=== PATIENT | female | born 1975 | race Caucasian/White ===

== ENCOUNTER 2023-09-27 09:00 | Inpatient (IN) | payer MEDICAID ==
[~2023-09-27] VITALS: Ht 167.6 cm; Wt 99.4 kg
[2023-09-27] VITALS (18 sets, daily range): BP systolic 98–131; BP diastolic 54–94; PULSE 82–99; RESP 16–27; TEMP 98.2; O2SAT 98–100
[2023-09-27 09:32] LABS: ABG BASE EXCESS -11.2 mmol/L (-2.0-2.0); ABG HCO3 16.9 mmol/L (22.0-26.0); ABG OXYGEN SATURATION 93.6 % (94-97); ABG PCO2 (T) 49.7 mmHg (32.0-45.0); ABG PH (T) 7.153 (7.350-7.450); ABG PO2 (T) 80.7 mmHg (75.0-100.0); ALLEN'S TEST POSITIVE; FCOHb 0.3 % (0.0-3.9); FHHb 6.4 % (0.0-5.0); FLOW 2 L/min; FMetHb 0.3 % (0.0-1.5); MODE NASAL CANNULA; PATIENT TEMPERATURE 37.4; TOTAL HEMOGLOBIN 9.1 G/dl (12.0-16.0)
[2023-09-27 10:04] LABS: BASOPHILS % (AUTO) 0.9 % (0-1); EOSINOPHILS # (AUTO) 0.1 X10'3 (0-0.9); EOSINOPHILS % (AUTO) 1.1 % (0-6); HEMATOCRIT 25.4 % (35.0-45.0); HEMOGLOBIN 8.2 g/dl (12.0-16.0); LYMPHOCYTES # (AUTO) 0.7 X10'3 (1.1-4.8); LYMPHOCYTES % (AUTO) 13.4 % (21-51); MEAN CORPUSCULAR HEMOGLOBIN 33.6 PG (27.0-31.0); MEAN CORPUSCULAR HGB CONC 32.2 g/dL (33.0-36.5); MEAN CORPUSCULAR VOLUME 104.3 FL (78-98); MEAN PLATELET VOLUME 6.5 FL (7.4-10.4); MONOCYTES # (AUTO) 0.4 X10'3 (0-0.9); MONOCYTES % (AUTO) 8.5 % (2-12); NEUTROPHILS # (AUTO) 3.9 X10'3 (1.8-7.7); NEUTROPHILS % (AUTO) 76.1 % (42-75); PLATELET COUNT 249 X10'3 (140-440); RED BLOOD COUNT 2.43 X10'6 (4.20-5.60); RED CELL DISTRIBUTION WIDTH 18.9 % (11.5-14.5); WHITE BLOOD COUNT 5.1 X10'3 (4.5-11.0)
[2023-09-27 10:18] LABS: ALBUMIN 2.5 G/DL (3.4-5.0); ANION GAP 17 (8-16); BLOOD UREA NITROGEN 53 MG/DL (7-18); BUN/CREATININE RATIO 5.7 (10.0-20.0); CALCIUM 8.7 MG/DL (8.5-10.1); CHLORIDE 102 MMOL/L (99-107); CREATININE 9.37 MG/DL (0.40-0.90); GLUCOSE 114 MG/DL (70-104); POTASSIUM 5.7 MMOL/L (3.5-5.1); SODIUM 137 MMOL/L (135-145); TOTAL CARBON DIOXIDE 18.3 MMOL/L (24-32); eCRCL 7 ML/MIN; eGFR 5 ML/MIN
[2023-09-27 10:22] LABS: BILIRUBIN,URINE NEGATIVE (Neg); CLARITY,URINE SLIGHTLY CLOUDY (Clear); COLOR,URINE YELLOW (Yellow); GLUCOSE, URINE NEGATIVE (Neg); KETONES,URINE NEGATIVE (Neg); LEUKOCYTE ESTERASE ,URINE TRACE (Neg); NITRITES, URINE NEGATIVE (Neg); OCCULT BLOOD,URINE LARGE (Neg); PH,URINE 6.5 (4.8-8.0); PROTEIN,URINE NEGATIVE (Neg); UROBILINOGEN,URINE 0.2 E.U/dL (0.2-1.0)
[2023-09-27 10:27] LABS: ANISOCYTOSIS 2+; PLATELET ESTIMATE NORMAL
[2023-09-27 10:41] LABS: UA COLLECTION TYPE FOLEY CATH
[2023-09-27 10:45] LABS: SQUAMOUS EPITHELIAL CELL,UR MANY /LPF (FEW)
[2023-09-27 10:46] LABS: WBC,URINE 20-30 /HPF (0-4)
[2023-09-27 10:47] LABS: BACTERIA,URINE FEW /HPF (Neg); YEAST FEW /HPF (NEGATIVE)
[2023-09-27] MEDS: CefTRIAXone 2gm/D5W 50ml BAG 50 ML IV ONE (10:58)
[2023-09-27] MEDS: acetaminophen 325mg tablet PO ONE (10:58)
[2023-09-27] MEDS: naloxone 2mg/2ml inj IV STA (11:02)
[2023-09-27] MEDS: acetaminophen 325mg rectal suppository RC ONE (11:37)
[2023-09-27] MEDS: WATER FOR INJECTION,STERILE 71 ML in dextrose 70%-water 179 ML IV SCH (11:50)
[2023-09-27] MEDS ORDERED: calcium gluconate inj. 3 GM in normal saline 100ml IV soln 100 ML IV ONE (11:50)
[2023-09-27] MEDS: vancomycin/NS 1 GM ADD-VANTAGE 250 ML IV ONE (11:58)
[2023-09-27 12:01] LABS: URINE AMPHETAMINE SCREEN NEGATIVE (Neg); URINE BARBITUATE SCREEN NEGATIVE (Neg); URINE BENZODIAZEPINES SCREEN POSITIVE (Neg); URINE CANNABINOID SCREEN NEGATIVE (Neg); URINE COCAINE SCREEN NEGATIVE (Neg); URINE METHADONE SCREEN NEGATIVE (Neg); URINE OPIATE SCREEN NEGATIVE (Neg); URINE PHENCYCLIDINE SCREEN NEGATIVE (Neg)
[2023-09-27] MEDS: normal saline 1000ml 1,000 ML IV SCH (12:05)
[2023-09-27] MEDS ORDERED: CALCIUM GLUC 1gm/50ml NACL,iso 50 ML IV SCH (12:08)
[2023-09-27] MEDS: dextrose 50%-water 50ml dispensing syringe IV ONE (12:17)
[2023-09-27] MEDS: sodium bicarbonate (8.4%) 1 mEq/ml syringe IV ONE (12:17)
[2023-09-27] MEDS: insulin regular, human 10 units/0.1 ml syringe IV ONE (12:20)
[2023-09-27] MEDS: CALCIUM GLUC 1gm/50ml NACL,iso 50 ML IV ONE (12:51)
[2023-09-27 12:52] LABS: ETHANOL < 10 MG/DL (<10)
[2023-09-27 13:48] LABS: LIPASE 26 U/L (16-77)
[2023-09-27] MEDS ORDERED: magnesium 2GM in 50ml NS 50 ML IV PRN ×2 (16:15→19:55)
[2023-09-27] MEDS ORDERED: magnesium Cl slow-release 64mg tablet PO PRN ×2 (16:15→19:55)
[2023-09-27] MEDS ORDERED: ondansetron/PF 4mg/2ml inj IV PRN ×2 (16:15→19:55)
[2023-09-27] MEDS ORDERED: acetaminophen 325mg tablet PO PRN ×2 (16:15→19:55)
[2023-09-27] MEDS ORDERED: mag hydrox/Alum hydrox/simeth 30ml oral suspension PO PRN ×2 (16:15→19:55)
[2023-09-27] MEDS ORDERED: magnesium hydroxide 30ml (MOM) UD suspension PO PRN ×2 (16:15→19:55)
[2023-09-27] MEDS ORDERED: magnesium 4gm in 100ml NS 100 ML IV PRN ×2 (16:15→19:55)
[2023-09-27] MEDS ORDERED: potassium Cl 40MEQ/1/2NS 520ml 520 ML IV PRN (16:15)
[2023-09-27] MEDS ORDERED: potassium Cl 20 mEq SR tablet PO PRN ×2 (16:15)
[2023-09-27 17:40] LABS: ABG HCO3 18.9 mmol/L (22.0-26.0); ABG OXYGEN SATURATION 95.3 % (94-97); ABG PCO2 (T) 64.4 mmHg (32.0-45.0); ABG PH (T) 7.082 (7.350-7.450); ABG PO2 (T) 92.1 mmHg (75.0-100.0); ALLEN'S TEST POSITIVE; FCOHb 0.5 % (0.0-3.9); FHHb 4.7 % (0.0-5.0); FMetHb 0.4 % (0.0-1.5); FO2Hb 94.4 % (94-97); MODE MASK - BIPAP; PATIENT TEMPERATURE 36.4; RESPIRATORY RATE 16 b/min; TOTAL HEMOGLOBIN 8.9 G/dl (12.0-16.0)
[2023-09-27] MEDS: rocuronium 10mg/ml inj IV ONE (18:02)
[2023-09-27] MEDS: etomidate 2mg/ml inj. IV ONE (18:02)
[2023-09-27] MEDS: fentaNYL/PF 50MCG/1 ML 2ML syringe IV ONE ×3 (18:08→19:50)
[2023-09-27] MEDS: fentaNYL/PF 50MCG/1 ML 2ML syringe ONE ×2 (18:09→18:10)
[2023-09-27] MEDS ORDERED: propofol 1000mg/100ml bottle 100 ML IV PRN ×2 (18:10)
[2023-09-27] MEDS: normal saline 1000ML IV soln IVB ONE (18:13)
[2023-09-27] MEDS: MIDAZolam 5mg/ml 2ml vial IV ONE (18:24)
[2023-09-27] MEDS: FENTANYL-0.9 % NACL/PF 100 ML IV PRN (19:03)
[2023-09-27] MEDS: midazolam 1 mg/ML 2ml injection IV ONE (19:45)
[2023-09-27 19:50] LABS: ABG BASE EXCESS -10.5 mmol/L (-2.0-2.0); ABG OXYGEN SATURATION 99.8 % (94-97); ABG PCO2 (T) 52.2 mmHg (32.0-45.0); ABG PH (T) 7.151 (7.350-7.450); ABG PO2 (T) 322.9 mmHg (75.0-100.0); ALLEN'S TEST POSITIVE; FCOHb 0.4 % (0.0-3.9); FHHb 0.2 % (0.0-5.0); FMetHb 0.4 % (0.0-1.5); MODE VENT - AC; PATIENT TEMPERATURE 36.4; RESPIRATORY RATE 22 b/min; TIDAL VOLUME 350 mL; TOTAL HEMOGLOBIN 8.4 G/dl (12.0-16.0)
[2023-09-27] MEDS ORDERED: FENTANYL-0.9 % NACL/PF 100 ML IV PRN (19:55)
[2023-09-27] MEDS ORDERED: docusate sod 100mg capsule PO SCH (20:00)
[2023-09-27] MEDS: docusate sod 100mg capsule PO SCH (20:00)
[2023-09-27] MEDS ORDERED: K and/or MAG REPLACEMENT MC SCH (20:00)
[2023-09-27] MEDS: K and/or MAG REPLACEMENT MC SCH (20:00)
[2023-09-27] MEDS: albumin (human) 25% 100ml IV 100 ML IV PRN (21:59)
[2023-09-27] MEDS: dexamethasone 4mg/ml inj IV SCH (22:27)
[2023-09-27] MEDS: heparin, porcine 5000 units/ml vial SQ SCH (22:27)
[2023-09-27] MEDS: midazolam 100mg in NS 100ml 100 ML IV PRN (22:28)
[2023-09-27] MEDS: heparin 1,000 units/ml 10ml inj IV ONE (23:10)
[2023-09-27] MEDS: heparin 1,000unit/ml 10ml vial 10 ML IV ONE (23:11)
[2023-09-27] MEDS: LIDOcaine 1% (10mg/ml) 2ml vial SQ ONE (23:14)
[2023-09-27] MEDS: EPOETIN ALFA-EPBX 20,000 UNIT/ML 1 ML MDV IV ONE (23:24)
[2023-09-28] VITALS (41 sets, daily range): BP systolic 118–152; BP diastolic 54–86; PULSE 62–89; RESP 16–33; O2SAT 92–100
[2023-09-28 03:20] LABS: BASOPHILS % (AUTO) 0.8 % (0-1); EOSINOPHILS % (AUTO) 0.7 % (0-6); HEMATOCRIT 23.1 % (35.0-45.0); HEMOGLOBIN 7.7 g/dl (12.0-16.0); LYMPHOCYTES # (AUTO) 0.3 X10'3 (1.1-4.8); LYMPHOCYTES % (AUTO) 6.6 % (21-51); MEAN CORPUSCULAR HEMOGLOBIN 32.9 PG (27.0-31.0); MEAN CORPUSCULAR HGB CONC 33.4 g/dL (33.0-36.5); MEAN CORPUSCULAR VOLUME 98.7 FL (78-98); MEAN PLATELET VOLUME 7.2 FL (7.4-10.4); MONOCYTES # (AUTO) 0.2 X10'3 (0-0.9); MONOCYTES % (AUTO) 4.5 % (2-12); NEUTROPHILS # (AUTO) 3.7 X10'3 (1.8-7.7); NEUTROPHILS % (AUTO) 87.4 % (42-75); PLATELET COUNT 270 X10'3 (140-440); RED BLOOD COUNT 2.35 X10'6 (4.20-5.60); WHITE BLOOD COUNT 4.3 X10'3 (4.5-11.0)
[2023-09-28 03:36] LABS: ALANINE AMINOTRANSFERASE 10 U/L (12-78); ALBUMIN 2.9 G/DL (3.4-5.0); ALBUMIN/GLOBULIN RATIO 0.6 (1.1-1.5); ALKALINE PHOSPHATASE 146 IU/L (46-116); ANION GAP 13 (8-16); ASPARTATE AMINO TRANSFERASE 10 U/L (10-37); BILIRUBIN,TOTAL 0.5 MG/DL (0.1-1.0); BLOOD UREA NITROGEN 18 MG/DL (7-18); BUN/CREATININE RATIO 4.3 (10.0-20.0); CALCIUM 8.3 MG/DL (8.5-10.1); CHLORIDE 101 MMOL/L (99-107); CREATININE 4.16 MG/DL (0.40-0.90); GLUCOSE 92 MG/DL (70-104); MAGNESIUM 1.8 MG/DL (1.5-2.4); PHOSPHORUS 3.9 MG/DL (2.3-4.5); POTASSIUM 3.6 MMOL/L (3.5-5.1); SODIUM 139 MMOL/L (135-145); TOTAL CARBON DIOXIDE 25.1 MMOL/L (24-32); TOTAL PROTEIN 7.6 G/DL (6.4-8.2); eCRCL 16 ML/MIN; eGFR 12 ML/MIN
[2023-09-28 03:47] LABS: ABG BASE EXCESS -2.1 mmol/L (-2.0-2.0); ABG HCO3 21.3 mmol/L (22.0-26.0); ABG OXYGEN SATURATION 91.7 % (94-97); ABG PCO2 (T) 30.3 mmHg (32.0-45.0); ABG PH (T) 7.462 (7.350-7.450); ABG PO2 (T) 54.7 mmHg (75.0-100.0); ALLEN'S TEST POSITIVE; FCOHb 0.4 % (0.0-3.9); FHHb 8.2 % (0.0-5.0); FMetHb 0.3 % (0.0-1.5); FO2Hb 91.1 % (94-97); MODE VENT - AC; PATIENT TEMPERATURE 36.4; RESPIRATORY RATE 24 b/min; TIDAL VOLUME 450 mL; TOTAL HEMOGLOBIN 8.9 G/dl (12.0-16.0)
[2023-09-28] MEDS: CefTRIAXone/D5W-Rocephin 1gm 50 ML IV SCH (07:28)
[2023-09-28] MEDS: docusate sodium 100mg/10ml UD cup PO SCH (07:44)
[2023-09-28] MEDS: propofol 1000mg/100ml bottle 100 ML IV SCH (09:17)
[2023-09-28] MEDS: risperiDONE 2mg tablet PO SCH (10:55)
[2023-09-28] MEDS ORDERED: VITA1CAP PO (11:06)
[2023-09-28] MEDS ORDERED: [UNRECOGNIZED DRUG - CODE] IVP (11:06)
[2023-09-28] MEDS ORDERED: AMOX-419 PO (11:06)
[2023-09-28] MEDS ORDERED: LACT10SO7 PO (11:10)
[2023-09-28] MEDS ORDERED: HEPA100D46 SQ (11:10)
[2023-09-28] MEDS ORDERED: LACT1TAB15 PO (11:10)
[2023-09-28] MEDS ORDERED: FOLI1TAB27 PO (11:10)
[2023-09-28] MEDS ORDERED: GABA-530 PO (11:10)
[2023-09-28] MEDS ORDERED: LEVO50CA4 PO (11:10)
[2023-09-28] MEDS ORDERED: METR-349 PO (11:14)
[2023-09-28] MEDS ORDERED: LORA10TA7 PO (11:14)
[2023-09-28] MEDS ORDERED: METO-539 PO (11:14)
[2023-09-28] MEDS ORDERED: LURA40TA2 PO (11:14)
[2023-09-28] MEDS ORDERED: LIDO1ADH78 TOP (11:14)
[2023-09-28] MEDS ORDERED: SEVE0.8P PO (11:19)
[2023-09-28] MEDS ORDERED: RIFA550T PO (11:19)
[2023-09-28] MEDS ORDERED: PANT-47 PO (11:19)
[2023-09-28] MEDS ORDERED: SODI473S26 TOP (11:19)
[2023-09-28] MEDS ORDERED: THIA50TA10 PO (11:19)
[2023-09-28] MEDS ORDERED: QUET50TA24 PO (11:19)
[2023-09-28] MEDS: vancomycin inj 500 MG in normal saline 100ml IV soln 100 ML IV SCH (12:37)
[2023-09-28] MEDS ORDERED: mag hydrox/Alum hydrox/simeth 30ml oral suspension OGT PRN (16:16)
[2023-09-28] MEDS ORDERED: magnesium hydroxide 30ml (MOM) UD suspension OGT PRN (16:16)
[2023-09-28] MEDS ORDERED: POTASSIUM BICARB 20meq eff tab 20 MEQ TABLET.EFF OGT PRN ×2 (16:17)
[2023-09-28] MEDS ORDERED: mineral oil/petrolatum ophthal oint EACHEYE SCH (20:00)
[2023-09-28] MEDS: docusate sodium 100mg/10ml UD cup OGT SCH (20:10)
[2023-09-29] VITALS (41 sets, daily range): BP systolic 65–138; BP diastolic 57–84; PULSE 62–85; RESP 11–30; TEMP 97.4–97.6; O2SAT 94–100
[2023-09-29 02:33] LABS: BASOPHILS % (AUTO) 0.4 % (0-1); EOSINOPHILS % (AUTO) 0.1 % (0-6); HEMATOCRIT 23.9 % (35.0-45.0); HEMOGLOBIN 7.9 g/dl (12.0-16.0); LYMPHOCYTES # (AUTO) 0.4 X10'3 (1.1-4.8); LYMPHOCYTES % (AUTO) 15.6 % (21-51); MEAN CORPUSCULAR HEMOGLOBIN 32.8 PG (27.0-31.0); MEAN CORPUSCULAR HGB CONC 33.1 g/dL (33.0-36.5); MEAN CORPUSCULAR VOLUME 99.1 FL (78-98); MEAN PLATELET VOLUME 7.2 FL (7.4-10.4); MONOCYTES # (AUTO) 0.1 X10'3 (0-0.9); MONOCYTES % (AUTO) 3.9 % (2-12); NEUTROPHILS # (AUTO) 2.2 X10'3 (1.8-7.7); PLATELET COUNT 286 X10'3 (140-440); RED BLOOD COUNT 2.41 X10'6 (4.20-5.60); RED CELL DISTRIBUTION WIDTH 17.9 % (11.5-14.5); WHITE BLOOD COUNT 2.7 X10'3 (4.5-11.0)
[2023-09-29 02:52] LABS: ALANINE AMINOTRANSFERASE 9 U/L (12-78); ALBUMIN 2.4 G/DL (3.4-5.0); ALBUMIN/GLOBULIN RATIO 0.5 (1.1-1.5); ALKALINE PHOSPHATASE 120 IU/L (46-116); ANION GAP 15 (8-16); ASPARTATE AMINO TRANSFERASE 7 U/L (10-37); BILIRUBIN,TOTAL 0.4 MG/DL (0.1-1.0); BLOOD UREA NITROGEN 28 MG/DL (7-18); CALCIUM 8.7 MG/DL (8.5-10.1); CHLORIDE 101 MMOL/L (99-107); GLUCOSE 147 MG/DL (70-104); PHOSPHORUS 7.1 MG/DL (2.3-4.5); POTASSIUM 4.6 MMOL/L (3.5-5.1); PREALBUMIN 16.4 MG/DL (19-36); SODIUM 138 MMOL/L (135-145); TOTAL CARBON DIOXIDE 22.4 MMOL/L (24-32); eCRCL 12 ML/MIN; eGFR 8 ML/MIN
[2023-09-29 03:47] LABS: ABG BASE EXCESS -3.9 mmol/L (-2.0-2.0); ABG HCO3 20.8 mmol/L (22.0-26.0); ABG PCO2 (T) 36.3 mmHg (32.0-45.0); ABG PH (T) 7.375 (7.350-7.450); ABG PO2 (T) 77.8 mmHg (75.0-100.0); ALLEN'S TEST Modified; FCOHb 0.2 % (0.0-3.9); FMetHb 0.3 % (0.0-1.5); FO2Hb 94.5 % (94-97); MODE VENT - prvc; PATIENT TEMPERATURE 36.7; PEEP 5 cm H2O; RESPIRATORY RATE 22 b/min; TIDAL VOLUME 350 mL
[2023-09-29 05:11] LABS: TOTAL CELLS COUNTED 100
[2023-09-29 05:12] LABS: ANISOCYTOSIS 1+; PLATELET ESTIMATE NORMAL
[2023-09-29] MEDS: pantoprazole 40 MG vial IV SCH (07:44)
[2023-09-29] MEDS: risperiDONE 2mg tablet OGT SCH (07:45)
[2023-09-29] MEDS: heparin 1,000unit/ml 10ml vial 10 ML IV ONE (08:00)
[2023-09-29] MEDS: heparin 1,000 units/ml 10ml inj IV ONE (08:00)
[2023-09-29] MEDS ORDERED: vancomycin/NS 1 GM ADD-VANTAGE 250 ML X 1 DOSE IV PRN (08:00)
[2023-09-29] MEDS: VANCOMYCIN LEVEL IJ ONE (10:00)
[2023-09-29] MEDS: EPOETIN ALFA-EPBX 20,000 UNIT/ML 1 ML MDV IV ONE (10:19)
[2023-09-29] MEDS: calcium acetate 667mg (phosLO) tablet OGT SCH (12:54)
[2023-09-29] MEDS: vancomycin/NS 1 GM ADD-VANTAGE 250 ML X 1 DOSE IV ONE (12:58)
[2023-09-29] MEDS: mineral oil/petrolatum ophthal oint EACHEYE SCH (13:31)
[2023-09-29] MEDS: lactulose 20gm/30ml cup PO SCH (13:31)
[2023-09-29] MEDS: sevelamer carbonate 0.8gm powder pkt PO SCH (17:22)
[2023-09-29] MEDS: lactobacillus rhamnosus 10,000 MMU CELLS/CAPSULE PO SCH (17:23)
[2023-09-29] MEDS: QUEtiapine 25mg tablet PO SCH (20:23)
[2023-09-29] MEDS: dexmedetomidin/NS 400mcg/100ml 100 ML IV PRN (22:42)
[2023-09-30] VITALS (16 sets, daily range): BP systolic 107–132; BP diastolic 53–72; PULSE 54–79; RESP 10–20; TEMP 98.1; O2SAT 92–99
[2023-09-30 02:18] LABS: BASOPHILS % (AUTO) 0.2 % (0-1); EOSINOPHILS % (AUTO) 0 % (0-6); HEMATOCRIT 25.2 % (35.0-45.0); HEMOGLOBIN 8.3 g/dl (12.0-16.0); LYMPHOCYTES # (AUTO) 0.4 X10'3 (1.1-4.8); LYMPHOCYTES % (AUTO) 12.3 % (21-51); MEAN CORPUSCULAR HEMOGLOBIN 32.6 PG (27.0-31.0); MEAN CORPUSCULAR VOLUME 98.7 FL (78-98); MEAN PLATELET VOLUME 6.9 FL (7.4-10.4); MONOCYTES # (AUTO) 0.2 X10'3 (0-0.9); MONOCYTES % (AUTO) 4.7 % (2-12); NEUTROPHILS # (AUTO) 2.8 X10'3 (1.8-7.7); NEUTROPHILS % (AUTO) 82.8 % (42-75); PLATELET COUNT 298 X10'3 (140-440); RED BLOOD COUNT 2.55 X10'6 (4.20-5.60); RED CELL DISTRIBUTION WIDTH 17.9 % (11.5-14.5); WHITE BLOOD COUNT 3.4 X10'3 (4.5-11.0)
[2023-09-30 02:20] LABS: ALANINE AMINOTRANSFERASE 13 U/L (12-78); ALBUMIN 2.6 G/DL (3.4-5.0); ALBUMIN/GLOBULIN RATIO 0.6 (1.1-1.5); ALKALINE PHOSPHATASE 117 IU/L (46-116); ANION GAP 10 (8-16); ASPARTATE AMINO TRANSFERASE 8 U/L (10-37); BILIRUBIN,TOTAL 0.3 MG/DL (0.1-1.0); BLOOD UREA NITROGEN 22 MG/DL (7-18); BUN/CREATININE RATIO 5.6 (10.0-20.0); CHLORIDE 101 MMOL/L (99-107); CREATININE 3.96 MG/DL (0.40-0.90); GLUCOSE 137 MG/DL (70-104); MAGNESIUM 2.1 MG/DL (1.5-2.4); PHOSPHORUS 5.6 MG/DL (2.3-4.5); SODIUM 139 MMOL/L (135-145); TOTAL CARBON DIOXIDE 27.6 MMOL/L (24-32); TOTAL PROTEIN 7.1 G/DL (6.4-8.2); eCRCL 17 ML/MIN; eGFR 12 ML/MIN
[2023-09-30] MEDS: VANCOMYCIN LEVEL IJ SCH (02:21)
[2023-09-30] MEDS: MULTIVIT-MIN/FERROUS GLUCONATE 9 MG/15 ML LIQUID OGT SCH (08:00)
[2023-09-30] MEDS: cyanocobalamin 500mcg tablet PO SCH (08:00)
[2023-09-30] MEDS: thiamine 100mg tablet PO SCH (08:00)
[2023-09-30] MEDS: levoTHYROXINE 25mcg tablet PO SCH (08:00)
[2023-09-30] MEDS: folic acid 1mg tablet PO SCH (08:00)
[2023-09-30] MEDS: lurasidone 20mg tablet PO SCH (08:00)
[2023-09-30 09:54] LABS: HBSAG SCREEN Negative (Negative)
[2023-09-30] MEDS ORDERED: VANCOMYCIN LEVEL IV ONE (11:30)
[2023-09-30] MEDS ORDERED: morphine 4 MG/ML inj SYRINge IV PRN (14:50)
[2023-09-30] MEDS ORDERED: acetaminophen 325mg tablet PO PRN (15:15)
[2023-09-30] MEDS: acetaminophen 325mg/10.15ml oral unit dose solution OGT PRN (15:26)
[2023-09-30] MEDS: acetaminophen 325mg tablet PO PRN (22:29)
[2023-10-01] VITALS (7 sets, daily range): BP systolic 95–153; BP diastolic 49–86; PULSE 75–84; RESP 18–20; TEMP 97.6–98; O2SAT 94–100
[2023-10-01] MEDS: hydrOXYzine 25 MG tablet PO PRN ×2 (03:17→14:47)
[2023-10-01 06:46] LABS: BASOPHILS % (AUTO) 0.1 % (0-1); EOSINOPHILS % (AUTO) 0.1 % (0-6); HEMATOCRIT 25.2 % (35.0-45.0); HEMOGLOBIN 8.5 g/dl (12.0-16.0); LYMPHOCYTES # (AUTO) 0.6 X10'3 (1.1-4.8); LYMPHOCYTES % (AUTO) 14.9 % (21-51); MEAN CORPUSCULAR HEMOGLOBIN 33.3 PG (27.0-31.0); MEAN CORPUSCULAR HGB CONC 33.9 g/dL (33.0-36.5); MEAN CORPUSCULAR VOLUME 98.3 FL (78-98); MONOCYTES # (AUTO) 0.2 X10'3 (0-0.9); MONOCYTES % (AUTO) 6.2 % (2-12); NEUTROPHILS % (AUTO) 78.7 % (42-75); PLATELET COUNT 358 X10'3 (140-440); RED BLOOD COUNT 2.56 X10'6 (4.20-5.60); RED CELL DISTRIBUTION WIDTH 17.6 % (11.5-14.5); WHITE BLOOD COUNT 3.8 X10'3 (4.5-11.0)
[2023-10-01 07:35] LABS: ALANINE AMINOTRANSFERASE 14 U/L (12-78); ALBUMIN 2.8 G/DL (3.4-5.0); ALBUMIN/GLOBULIN RATIO 0.6 (1.1-1.5); ALKALINE PHOSPHATASE 122 IU/L (46-116); ANION GAP 16 (8-16); ASPARTATE AMINO TRANSFERASE 18 U/L (10-37); BILIRUBIN,TOTAL 0.4 MG/DL (0.1-1.0); BLOOD UREA NITROGEN 38 MG/DL (7-18); BUN/CREATININE RATIO 7.4 (10.0-20.0); CALCIUM 8.5 MG/DL (8.5-10.1); CHLORIDE 100 MMOL/L (99-107); CREATININE 5.14 MG/DL (0.40-0.90); GLUCOSE 120 MG/DL (70-104); POTASSIUM 4.4 MMOL/L (3.5-5.1); SODIUM 138 MMOL/L (135-145); TOTAL CARBON DIOXIDE 22.4 MMOL/L (24-32); TOTAL PROTEIN 7.3 G/DL (6.4-8.2); VANCOMYCIN,RANDOM 23.9 ug/mL (20.0-30.0); eCRCL 13 ML/MIN; eGFR 9 ML/MIN
[2023-10-01 10:56] LABS: C DIFF ANTIGEN NEGATIVE (NEGATIVE); C DIFF SPECIMEN=DIARRHEA? ACCEPTABLE; C DIFFICILE TOXINS A&B NEGATIVE (Neg)
[2023-10-02] VITALS (12 sets, daily range): BP systolic 129–175; BP diastolic 65–97; PULSE 83–91; RESP 16–20; TEMP 97.7–98.1; O2SAT 94–97
[2023-10-02 06:51] LABS: BASOPHILS % (AUTO) 0.1 % (0-1); EOSINOPHILS % (AUTO) 0 % (0-6); HEMATOCRIT 23.7 % (35.0-45.0); LYMPHOCYTES # (AUTO) 0.6 X10'3 (1.1-4.8); LYMPHOCYTES % (AUTO) 15.1 % (21-51); MEAN CORPUSCULAR HEMOGLOBIN 33.1 PG (27.0-31.0); MEAN CORPUSCULAR HGB CONC 33.8 g/dL (33.0-36.5); MEAN CORPUSCULAR VOLUME 98.1 FL (78-98); MEAN PLATELET VOLUME 6.8 FL (7.4-10.4); MONOCYTES # (AUTO) 0.3 X10'3 (0-0.9); NEUTROPHILS # (AUTO) 3.3 X10'3 (1.8-7.7); NEUTROPHILS % (AUTO) 77.8 % (42-75); PLATELET COUNT 366 X10'3 (140-440); RED BLOOD COUNT 2.41 X10'6 (4.20-5.60); RED CELL DISTRIBUTION WIDTH 17.9 % (11.5-14.5); WHITE BLOOD COUNT 4.2 X10'3 (4.5-11.0)
[2023-10-02 07:28] LABS: ALANINE AMINOTRANSFERASE 25 U/L (12-78); ALBUMIN 2.7 G/DL (3.4-5.0); ALBUMIN/GLOBULIN RATIO 0.7 (1.1-1.5); ALKALINE PHOSPHATASE 104 IU/L (46-116); ANION GAP 18 (8-16); ASPARTATE AMINO TRANSFERASE 18 U/L (10-37); BILIRUBIN,TOTAL 0.4 MG/DL (0.1-1.0); BLOOD UREA NITROGEN 52 MG/DL (7-18); BUN/CREATININE RATIO 8.4 (10.0-20.0); CHLORIDE 99 MMOL/L (99-107); CREATININE 6.18 MG/DL (0.40-0.90); GLUCOSE 119 MG/DL (70-104); PHOSPHORUS 6.7 MG/DL (2.3-4.5); POTASSIUM 4.6 MMOL/L (3.5-5.1); SODIUM 140 MMOL/L (135-145); THYROID STIMULATING HORMONE 1.67 ulU/ml (0.34-4.50); TOTAL CARBON DIOXIDE 23.2 MMOL/L (24-32); TOTAL PROTEIN 6.7 G/DL (6.4-8.2); VANCOMYCIN,RANDOM 22.2 ug/mL (20.0-30.0); eCRCL 11 ML/MIN; eGFR 7 ML/MIN
[2023-10-02] MEDS: pantoprazole 40mg Tablet.DR PO SCH (07:30)
[2023-10-02] MEDS: heparin 1,000 units/ml 10ml inj HE ONE ×2 (08:00)
[2023-10-02] MEDS: LORazepam 0.5 MG tablet PO PRN (09:05)
[2023-10-02 09:41] LABS: TOTAL CELLS COUNTED 100
[2023-10-02 09:42] LABS: ANISOCYTOSIS 1+; PLATELET ESTIMATE NORMAL; POLYCHROMASIA FEW
[2023-10-02] MEDS: heparin 1,000 units/ml 10ml inj IV ONE (10:05)
[2023-10-02] MEDS: heparin 1,000unit/ml 10ml vial 10 ML IV ONE (10:05)
[2023-10-02] MEDS: EPOETIN ALFA-EPBX 20,000 UNIT/ML 1 ML MDV IV ONE (10:05)
[2023-10-02] MEDS: pneumococcal 23-VAL P-sac vacc 25 mcg/0.5ml vial IMVAC ONE (10:25)
== END 2023-10-02 16:06 | DRG 812 ==
LOC: ER 09:01 → ED HOLD 16:18 → EDBEDREQSVC 20:20 → CICU 2S 20:45 → PCU 3S 09-30 21:50
PROVIDERS: ADMIT Internal Medicine Critical Care Medicine; ATTEND Family Medicine
PROC: 5A1D70Z Performance of Urinary Filtration, Intermittent, Less than 6 Hours Per Day (ICD-10-PCS; 2023-09-27)
PROC: 5A09357 Assistance with Respiratory Ventilation, Less than 24 Consecutive Hours, Continuous Positive Airway Pressure (ICD-10-PCS; 2023-09-27)
PROC: 02HV33Z Insertion of Infusion Device into Superior Vena Cava, Percutaneous Approach (ICD-10-PCS; principal; 2023-09-28)
PROC: 5A1945Z Respiratory Ventilation, 24-96 Consecutive Hours (ICD-10-PCS; 2023-09-28)
PROC: B548ZZA Ultrasonography of Superior Vena Cava, Guidance (ICD-10-PCS; 2023-09-28)
PROC: 0BH17EZ Insertion of Endotracheal Airway into Trachea, Via Natural or Artificial Opening (ICD-10-PCS; 2023-09-28)
PROC: 5A1D70Z Performance of Urinary Filtration, Intermittent, Less than 6 Hours Per Day (ICD-10-PCS; 2023-09-29)
PROC: 5A1D70Z Performance of Urinary Filtration, Intermittent, Less than 6 Hours Per Day (ICD-10-PCS; 2023-10-02)
DX: T40.601A Poisoning by unspecified narcotics, accidental (unintentional), initial encounter (principal); J96.01 Acute respiratory failure with hypoxia; G92.8 Other toxic encephalopathy; I13.2 Hypertensive heart and chronic kidney disease with heart failure and with stage 5 chronic kidney disease, or end stage renal disease; E87.4 Mixed disorder of acid-base balance; L03.115 Cellulitis of right lower limb; N18.6 End stage renal disease; D64.9 Anemia, unspecified; E03.9 Hypothyroidism, unspecified; Z20.822 Contact with and (suspected) exposure to COVID-19; E66.9 Obesity, unspecified; E87.5 Hyperkalemia; K21.9 Gastro-esophageal reflux disease without esophagitis; Y90.9 Presence of alcohol in blood, level not specified; F10.939 Alcohol use, unspecified with withdrawal, unspecified; F31.9 Bipolar disorder, unspecified; I50.9 Heart failure, unspecified; J44.9 Chronic obstructive pulmonary disease, unspecified; N39.0 Urinary tract infection, site not specified; Z91.158 Patient's noncompliance with renal dialysis for other reason; Z88.5 Allergy status to narcotic agent; Z88.2 Allergy status to sulfonamides; Z88.8 Allergy status to other drugs, medicaments and biological substances; Z91.040 Latex allergy status; Y92.89 Other specified places as the place of occurrence of the external cause; Z68.25 Body mass index [BMI] 25.0-25.9, adult
CPT/HCPCS: 36415; 36600; 70450; 71045; 74176; 80048; 80053; 80202; 80305; 80320; 81001; 82140; 82803; 82948; 83605; 83690; 83735; 84100; 84134; 84145; 84443; 84484; 85007; 85008; 85018; 85025; 87040; 87070; 87081; 87088; 87324; 87340; 87449; 90732; 92508; 92616; 93005; 94002; 94003; 94660; 94760; 96365; 96366; 96368; 96375; 97161; 97530; 99285; A4333; A4615; A4649; A6213; A6222; A6258; A6446; A6449; A9900; C1751; C1758; C9113; E1594; G0257; G0378; J0610; J0696; J1100; J1644; J1815; J2250; J2310; J2704; J3010; J3370; J3490; J7030; J7040; P9047; Q0177; Q4081